=== PATIENT | male | born 1950 ===

== ENCOUNTER 2024-11-01 06:23 | Day surgery (SDC) | payer MEDICARE, SELFPAY ==
[2024-10-16 13:35] LABS: Hematocrit 42.8 % (39.0-52.0); Hemoglobin 13.9 g/dL (13.0-18.0); Mean Corp Hgb Conc. 32.5 g/dL (33.0-37.0); Mean Corpuscular Hgb 31.7 pg (27.0-31.0); Mean Corpuscular Volume 97.7 fL (80.0-94.0); Mean Platelet Volume 9.5 fL (7.4-10.4); Platelet Count 210 10^3/uL (130-400); Red Blood Cell Count 4.38 10^6/uL (4.70-6.10); White Blood Cell Count 7.4 10^3/uL (4.8-10.8)
[2024-10-16 14:18] VITALS: BMI 34.7
[2024-10-16 14:36] LABS: ALT (SGPT) 26 U/L (0-50); AST (SGOT) 27 U/L (17-59); Albumin 4.5 g/dl (3.5-5.0); Alkaline Phosphatase 48 U/L (38-126); Blood Urea Nitrogen 14 mg/dl (9-20); Calcium 9.1 mg/dl (8.4-10.2); Carbon Dioxide 30 mmol/L (22-30); Chloride 103 mmol/L (98-107); Estimated Creatinine Clearance 91 ml/min; Glucose 95 mg/dl (70-99); Potassium 4.5 mmol/L (3.5-5.1); Sodium 142 mmol/L (135-145); Total Bilirubin 0.6 mg/dl (0.2-1.3); Total Protein 6.9 g/dl (6.3-8.2); eGFR > 60.00
[2024-10-16 14:41] LABS: Glycohemoglobin (HgbA1c) 6.1 % (4.0-5.6)
[2024-10-27 14:14] VITALS: BMI 34.7
[2024-11-01] VITALS (15 sets, daily range): BP systolic 104–209; BP diastolic 63–90; BMI 34.7
--- NOTE | 2024-11-01 08:26 | W.DS.TRANS ---
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
-
Discharge Instructions:
Sleep Apnea Risk Intermediate
Discharge Diagnosis/Procedures R Reverse TSA Dr. Avila 11/01/24
Diet As tolerated
Activity No strenuous activity
Driving Restrictions No driving
Instructions:
Stand-Alone Forms: SDS Total Shoulder D/C Inst.
Changes to Home Medications: Yes
Discharge Medications:
DC Medications w/original date entered in [employer]
amlodipine 2.5 mg tablet 2.5 mg PO DAILY 10/26/24
atorvastatin 10 mg tablet 10 mg PO DAILY 10/26/24
buspirone 5 mg tablet 5 mg PO DAILY 10/26/24
finasteride 5 mg tablet 5 mg PO DAILY 10/26/24
hydroxyzine pamoate 25 mg capsule 25 mg PO BID PRN Anxiety 10/26/24
lacosamide 50 mg tablet 50 mg PO BID 10/26/24
multivitamin with minerals-folic acid 0.4 mg tablet 1 tab PO DAILY 10/26/24
olanzapine 2.5 mg tablet (Zyprexa) 2.5 mg PO DAILY 10/26/24
olanzapine 5 mg tablet (Zyprexa) 5 mg PO HS 10/26/24
tamsulosin 0.4 mg capsule 0.4 mg PO DAILY 10/26/24
trazodone 50 mg tablet 50 mg PO HS 10/26/24
Saccharomyces boulardii 250 mg capsule (Florastor) 250 mg PO BID #1 cap 11/01/24
acetaminophen 500 mg capsule 1,000 mg (2 x 500 mg) PO QID #0 caps 11/01/24
aspirin 325 mg tablet 325 mg PO DAILY blood clot prevention #1 tab 11/01/24
docusate sodium 100 mg capsule (Colace) 100 mg PO BID stool softner #1 cap 11/01/24
doxycycline hyclate 100 mg capsule 100 mg PO BID infection prevention #10 caps 11/01/24
magnesium hydroxide 400 mg/5 mL oral suspension (Milk of Magnesia) 30 ml PO HS PRN Constipation #1 mL 11/01/24
ondansetron 4 mg disintegrating tablet 4 mg PO Q6H PRN n/v #20 tabs 11/01/24
oxycodone 5 mg tablet 5 mg PO Q6H PRN 1 tab moderate pain, 2 tabs severe pain #30 tabs 11/01/24
sennosides 8.6 mg tablet (Senokot) 17.2 mg (2 x 8.6 mg) PO BID laxative #2 tabs 11/01/24
Home Medication Changes
Saccharomyces boulardii 250 mg capsule (Florastor) 250 mg PO BID #1 cap 11/01/24
acetaminophen 500 mg capsule 1,000 mg (2 x 500 mg) PO QID #0 caps 11/01/24
aspirin 325 mg tablet 325 mg PO DAILY blood clot prevention #1 tab 11/01/24
docusate sodium 100 mg capsule (Colace) 100 mg PO BID stool softner #1 cap 11/01/24
doxycycline hyclate 100 mg capsule 100 mg PO BID infection prevention #10 caps 11/01/24
magnesium hydroxide 400 mg/5 mL oral suspension (Milk of Magnesia) 30 ml PO HS PRN Constipation #1 mL 11/01/24
ondansetron 4 mg disintegrating tablet 4 mg PO Q6H PRN n/v #20 tabs 11/01/24
oxycodone 5 mg tablet 5 mg PO Q6H PRN 1 tab moderate pain, 2 tabs severe pain #30 tabs 11/01/24
sennosides 8.6 mg tablet (Senokot) 17.2 mg (2 x 8.6 mg) PO BID laxative #2 tabs 11/01/24
Pending Results: No
[2024-11-01] MEDS: CELEBREX 200 MG PO (09:51)
[2024-11-01] MEDS: TYLENOL 1000 MG PO (09:51)
[2024-11-01] MEDS: NORMOSOL-R/PLASMALYTE-A 1000 IV (09:51)
[2024-11-01] MEDS: ANCEF 5 IV (15:31)
== END 2024-11-01 16:15 | disposition home or self-care (01) ==
LOC: SDS 06:23
PROVIDERS: ATTENDING PHYSICIAN Orthopaedic Surgery Hand Surgery; FAMILY PHYSICIAN Family Medicine
DX: M75.101 Unspecified rotator cuff tear or rupture of right shoulder, not specified as traumatic (principal); M19.011 Primary osteoarthritis, right shoulder
CPT/HCPCS: 23472; C1776; 36415; 73020; 80053; 83036; 85027; 87070; 93005